=== PATIENT | female | born 1960 | race Caucasian/White ===

== ENCOUNTER 2019-07-02 09:39 | Outpatient (CLI) | payer OTHER, SELFPAY ==
--- NOTE | 2019-07-02 09:48 | EST_ITS ---
Patient Info Name: Shraddha Braxton Age: 59 years : 1960 Gender: Female Ht: 63 in Wt: 125 lbs BSA: 1.59 m2 Exam Date: 07/02/2019 11:02 AM Exam Location: [facility] Stress Patient Status: Outpatient Admit Date: 07/02/2019 Staff Ordering Physician: Marciano Garcia DO Attending Provider: Marciano Garcia DO Exercise Technologist: Danae Dela Cruz RDCS Exercise Physician: Marciano Garcia DO Exam Type: CA stress test treadmill Study Info Indications R07.89 - Other chest pain A treadmill exercise stress test was performed. Summary 1. 1. Negative Dmitry exercise stress test for ischemic ST changes by ECG criteria. 2. 2. Good functional capacity, achieving 9 METs of workload. 3. 3. Appropriate HR response with exercise. 4. 4. Appropriate HR recovery at 1 minute post exercise. 5. 5. No imaging with stress testing. 6. 6. Patient informed of the above results. Protocol: Dmitry Stress ECG Details Stage: REST Duration (min): 0 min : 42 sec Speed (mph): 0.0 Grade (%): 0 HR (bpm): 60 SBP (mmHg): 133 DBP (mmHg): 84 METS: --- Stage: REST Duration (min): 3 min : 46 sec Speed (mph): 0.0 Grade (%): 0 HR (bpm): 63 SBP (mmHg): 133 DBP (mmHg): 84 METS: --- Stage: STAGE 1 Duration (min): 1 min : 0 sec Speed (mph): 1.7 Grade (%): 10 HR (bpm): 95 SBP (mmHg): 133 DBP (mmHg): 84 METS: --- Stage: STAGE 1 Duration (min): 2 min : 0 sec Speed (mph): 1.7 Grade (%): 10 HR (bpm): 105 SBP (mmHg): 133 DBP (mmHg): 84 METS: --- Stage: STAGE 1 Duration (min): 3 min : 0 sec Speed (mph): 1.7 Grade (%): 10 HR (bpm): 107 SBP (mmHg): 141 DBP (mmHg): 73 METS: --- Stage: STAGE 2 Duration (min): 1 min : 0 sec Speed (mph): 2.5 Grade (%): 12 HR (bpm): 113 SBP (mmHg): 141 DBP (mmHg): 73 METS: --- Stage: STAGE 2 Duration (min): 2 min : 0 sec Speed (mph): 2.5 Grade (%): 12 HR (bpm): 118 SBP (mmHg): 146 DBP (mmHg): 76 METS: --- Stage: STAGE 2 Duration (min): 3 min : 0 sec Speed (mph): 2.5 Grade (%): 12 HR (bpm): 124 SBP (mmHg): 146 DBP (mmHg): 76 METS: --- Stage: STAGE 3 Duration (min): 1 min : 0 sec Speed (mph): 3.4 Grade (%): 14 HR (bpm): 136 SBP (mmHg): 159 DBP (mmHg): 79 METS: --- Stage: STAGE 3 Duration (min): 1 min : 28 sec Speed (mph): 3.4 Grade (%): 14 HR (bpm): 138 SBP (mmHg): 159 DBP (mmHg): 79 METS: --- Stage: RECOVERY Duration (min): 0 min : 31 sec Speed (mph): 0.0 Grade (%): 0 HR (bpm): 136 SBP (mmHg): 159 DBP (mmHg): 79 METS: --- Stage: RECOVERY Duration (min): 1 min : 31 sec Speed (mph): 0.0 Grade (%): 0 HR (bpm): 104 SBP (mmHg): 178 DBP (mmHg): 82 METS: --- Stage: RECOVERY Duration (min): 2 min : 31 sec Speed (mph): 0.0
== END 2019-07-02 09:40 | disposition home or self-care (01) ==
PROVIDERS: PCP Internal Medicine; Visit Provider Internal Medicine Cardiovascular Disease
DX: R07.9 Chest pain, unspecified (principal)
CPT/HCPCS: 93017

== ENCOUNTER 2020-08-06 11:13 | Outpatient (CLI) | payer OTHER, SELFPAY ==
--- NOTE | ~2020-08-06 | XR_ITS ---
EXAMINATION: XR shoulder LT min 2V DATE: 08/06/2020 11:32 INDICATION: Left shoulder pain. TECHNIQUE: 4 views of left shoulder were obtained. COMPARISON: None. FINDINGS: Bone alignment is normal. No fracture. There is moderate osteoarthritis of glenohumeral kristin nt and severe osteoarthritis of acromioclavicular joint. IMPRESSION: 1. Polyarticular osteoarthritis. Reviewed, dictated and finalized at location A. FARMER
== END 2020-08-06 11:14 | disposition home or self-care (01) ==
PROVIDERS: PCP Internal Medicine; Visit Provider Internal Medicine
DX: M19.012 Primary osteoarthritis, left shoulder (principal)
CPT/HCPCS: 73030

== ENCOUNTER 2023-10-20 22:28 | Emergency (ER) | payer OTHER, SELFPAY ==
[2023-10-20] VITALS (9 sets, daily range): BP systolic 87–145; BP diastolic 59–94; PULSE 52–89; RESP 11–18; TEMP 36.6; O2SAT 96–100
--- NOTE | ~2023-10-20 | CT_ITS ---
EXAMINATION: CT brain wo con DATE: 10/20/2023 22:48 INDICATION: Found down unresponsive TECHNIQUE: Computed tomography (CT) of the head was performed without intravenous contrast. Sagittal and coronal reconstructions were performed. The mA was adjusted according to patient size. Iterative reconstruction technique was employed. The dose-length product was 1210.67 mGy-cm. COMPARISON: head CT dated 12/27/09 and brain MR dated 04/05/2016 FINDINGS: No fracture. No acute intracranial hemorrhage, acute infarction or abnormal extra axial fluid collect ion. Ventricles are normal and symmetric. No mass/mass effect. The orbits, paranasal sinuses and mast oid air cells are normal. IMPRESSION: 1. Normal for age head CT. No fracture or acute intracranial process. Reviewed, dictated and finalized at location A.
--- NOTE | ~2023-10-20 | CT_ITS ---
EXAMINATION: CT cervical spine wo con DATE: 10/20/2023 22:49 INDICATION: Found down unresponsive TECHNIQUE: Computed tomography (CT) of the cervical spine was performed without intravenous contrast. Automated exposure control and iterative reconstruction technique were employed. The dose-length pro duct was 143.39 mGy-cm. COMPARISON: None FINDINGS: Alignment is normal. Vertebral body heights are normal. No fracture. Moderate osteoarthritis at the a tlantoaxial articulation. Mild disc height loss at C5-C6. Disc bulges resulting in mild central canal stenosis at C3-C4 through C6-C7. Multilevel uncovertebral osteoarthritis, moderate severity on the l eft at C3-C4 on the right at C4-C5 and C6-C7, bilaterally at C5-C6 and mild at the remaining cervical levels. Severe facet osteoarthritis on the left at C4-C5 through C6-C7 and on the left at C7-T1. Mil d to moderate facet osteoarthritis the remaining cervical levels. Together this contributes to mild n eural foraminal stenosis on the left at C3-C4 through C6-C7 and on the right at C2-C3 through C7-T1 r elatively sparing C6-C7. There is additional severe multilevel facet osteoarthritis the visualized up per thoracic spine. Mild emphysema in the visualized upper lungs. Cervical soft tissues are unremarka ble. IMPRESSION: 1. Mild cervical spondylosis with multilevel mild to moderate uncovertebral and moderate to severe fa cet osteoarthritis. No acute osseous abnormality. 2. Mild emphysema. Reviewed, dictated and finalized at location A. IMPRESSION: 1. Mild cervical spondylosis with multilevel mild to moderate uncovertebral and moderate to severe facet osteoarthritis. No acute osseous abnormality. 2. Mild emphysema.
[2023-10-20 22:49] LABS: Glucose Point of Care 104 mg/dl (65-105)
--- NOTE | 2023-10-20 22:56 | ECG_ITS ---
SEE SCANNED COPY FOR CONFIRMED REPORT MTDD
--- NOTE | 2023-10-20 22:57 | ED.AMS ---
HPI - Altered Mental Status General Chief Complaint: Altered Mental Status <Jeri Chin MD - Last Filed: 10/21/23 07:05> Stated Complaint: unresponsive <Jeri Chin MD - Last Filed: 10/21/23 07:05> Time Seen by Provider: 10/20/23 22:44 <Jeri Chin MD - Last Filed: 10/21/23 07:05> History of Present Illness HPI narrative: Patient reportedly found on the ground unresponsive, EMS did notice that she had pinpoint pupils and gave her a dose of IV Narcan after which her end-tidal dramatically increased and she was breathing much more regularly. other history difficult to obtain from the patient due to her confusion <Jeri Chin MD - Last Filed: 10/21/23 07:05> Related Data Home Medications: Home Medications Medication Instructions Recorded Confirmed alprazolam 1 mg tablet 1 mg PO TID 07/09/20 07/09/20 cetirizine 10 mg tablet 10 mg PO DAILY 07/09/20 07/09/20 dolutegravir 50 mg tablet 50 mg PO DAILY 07/09/20 07/09/20 emtricitabine 200 mg-tenofovir 1 tablet PO DAILY 07/09/20 07/09/20 disoproxil fumarate 300 mg tablet quetiapine 50 mg tablet 100 mg PO .HS 07/09/20 07/09/20 <Jeri Chin MD - Last Filed: 10/21/23 07:05> Allergies/Adverse Reactions: Allergies Allergy/AdvReac Type Severity Reaction Status Date / Time latex Allergy Unknown unknown Verified 07/09/20 15:07 ANTIDEPRESSANTS Allergy Intermediate Dyspnea / Uncoded 07/09/20 15:07 SOB PSYCHOTROPIC MEDICATIONS Allergy Intermediate Dyspnea / Uncoded 07/09/20 15:07 SOB <Jeri Chin MD - Last Filed: 10/21/23 07:05> Review of Systems Review of Systems: ROS unobtainable: Yes unobtainable due to mental status <Jeri Chin MD - Last Filed: 10/21/23 07:05> PMFSH Family History Family History: Family History (Updated 01/23/14 @ 07:13 by DOCTOR UNKNOWN) Father Family history of type 2 diabetes mellitus Family history of heart disease in male family member before age 55 Mother Family history of type 2 diabetes mellitus Cerebrovascular accident <Jeri Chin MD - Last Filed: 10/21/23 07:05> Social History Social History: Social History Smoking status: Heavy tobacco smoker Second hand tobacco smoke exposure: Yes Alcohol intake: never <Jeri Chin MD - Last Filed: 10/21/23 07:05> Exam Narrative: EXAMINATION OF ORGAN SYSTEMS/BODY AREAS: Constitutional: Vital signs per nursing GENERAL: Sleepy HEAD: Normal with no signs of head trauma. EYES: pinpoint pupils ENT: dry mucous membranes LUNGS: Nonlabored breathing. HEART: [Regular rate and rhythm] ABD: [Soft], [nontender to palpation] EXT: Normal range of motion without any obvious deformity SKIN: [No rashes or lesions.] NEURO: [Sleepy. No gross focal sensory or strength deficits.] <Jeri Chin MD - Last Filed: 10/21/23 07:05> Course Vital Signs Vital signs: Vital Signs Temperature 97.8 F 10/20/23 22:27 Pulse Rate 84 10/20/23 22:27 Respiratory Rate 18 10/20/23 22:27 Blood Pressure 123/72 10/20/23 22:27 Pulse Oximetry 100 10/20/23 22:27 Oxygen Delivery Room Air 10/20/23 22:27 Temperature 97.8 F 10/20/23 22:27 Pulse Rate 46 L 10/21/23 07:10 Respiratory Rate 14 10/21/23 07:10 Blood Pressure 115/66 10/21/23 07:10 Pulse Oximetry 100 10/21/23 07:10 Oxygen Delivery Room Air 10/20/23 23:30 <Jeri Chin MD - Last Filed: 10/21/23 07:05> Vital Signs Temperature 97.8 F 10/20/23 22:27 Pulse Rate 84 10/20/23 22:27 Respiratory Rate 18 10/20/23 22:27 Blood Pressure 123/72 10/20/23 22:27 Pulse Oximetry 100 10/20/23 22:27 Oxygen Delivery Room Air 10/20/23 22:27 Temperature 97.8 F 10/20/23 22:27 Pulse Rate 46 L 10/21/23 07:10 Respiratory Rate 14 10/21/23 07:10 Blood Pressure 115/66 10/21/23 07:10 Pulse Oximetry 100 10/21/23 07:10 Oxygen Delivery Room Air 10/20/23 23:30 <Millicent Corley MD - Last Filed: 10/21/23 07:51> M
[2023-10-20 23:12] LABS: Basophils Percent Auto 0.4 % (0.2-1.2); Eosinophils Absolute Auto 0.1 K/mm3 (0-0.3); Eosinophils Percent Auto 1.3 % (0-4.4); Hematocrit 37.7 % (37.0-47.0); Hemoglobin 12.3 g/dL (12.0-15.0); Immature Granulocyte Absolute 0.01 K/mm3 (0.00-0.031); Immature Granulocyte Percent A 0.2 % (0-0.5); Immature Platelet Fraction Pct 21.9 % (0.9-11.2); Lymphocytes Absolute Auto 1.33 K/mm3 (0.9-3.2); Lymphocytes Percent Auto 28.5 % (18.3-44.2); Mean Corpuscular HGB Conc 32.6 g/dl (32-36); Mean Corpuscular Hemoglobin 30.9 pg (26-34); Mean Corpuscular Volume 94.7 fl (80-100); Monocytes Absolute Auto 0.4 K/mm3 (0.1-0.6); Monocytes Percent Auto 7.5 % (2.6-8.5); Neutrophils Absolute Auto 2.9 K/mm3 (1.3-6.7); Neutrophils Percent Auto 62.1 % (45.5-73.1); Platelet Count Result 95 k/mm3 (150-375); Red Blood Count 3.98 M/mm3 (4.2-5.4); Red Cell Distribution Width 13.2 % (11.5-14.5); White Blood Count 4.7 K/mm3 (4.5-10.0)
[2023-10-20 23:20] LABS: Alanine Aminotransferase 20 U/L (6-35); Albumin Level 4.1 g/dL (3.5-5.1); Alkaline Phosphatase 81 U/L (38-126); Anion Gap 4 mmol/L (4-12); Aspartate Amino Transferase 33 U/L (14-36); Bilirubin,Total 0.6 mg/dL (0.2-1.3); Blood Urea Nitrogen 14 mg/dL (7-17); Carbon Dioxide 27 mmol/L (22-30); Chloride 107 mmol/L (98-107); Creatine Kinase 169 U/L (30-135); Estimated CRCL calculation 41 ml/min; Estimated Glomerular Filt Rate 56; Ethanol < 10 mg/dL (<10); Glucose 96 mg/dL (65-110); Potassium 3.6 mmol/L (3.4-5.0); Sodium 138 mmol/L (137-145)
[2023-10-21] VITALS (14 sets, daily range): BP systolic 87–133; BP diastolic 61–95; PULSE 37–82; RESP 12–18; O2SAT 96–100
[2023-10-21 01:11] LABS: Appearance Urine Clear (Clear); Bilirubin Urine Negative (Negative); Blood Urine Negative (Negative); Color Urine Yellow (Yellow); Glucose Urine UA Negative (Negative); Ketones Urine Negative (Negative); Leukocyte Esterase Ur Negative LEU/UL (Negative); Nitrate Urine Negative (Negative); Protein Urine Negative (Negative); Specific Grav Ur 1.015 (1.001-1.035); Urobilinogen Urine 0.2 mg/dL (<2.0); pH Urine 5.5 (5.0-9.0)
[2023-10-21 01:28] LABS: Barbiturate Screen Urine Negative (Negative); Benzodiazepines Screen Urine Positive (Negative)
[2023-10-21 01:29] LABS: Cannabinoid Screen Urine Positive (Negative); Cocaine Screen Urine Negative (Negative); Methadone Screen Urine Negative (Negative); Opiate Screen Urine Negative (Negative); Phencyclidine Screen Urine Negative (Negative)
[2023-10-21 01:50] LABS: Amphetamine Screen Urine Positive (Negative)
[2023-10-21 01:51] LABS: Add Urine Microscopic? NO
--- NOTE | 2023-10-21 08:05 | PC.NURSE ---
Attempting to D/C patient at this time. Pt states her son is crazy and is going to torture me This RN offer to call the police for her, or call a homeless/ domestic senior living for her. She denies and states my son is on probation and he will go to skilled nursing if i call the police so i dont want to do that Pt states I will get an order of protection on monday This RN asks what her plan is for the weekend, she states ill just go home, im sure my son will come over and who know what he will do Again I offer to get resources for patient, she denies. Pt states she will call a friend to come and pick her up. Left pt in room to attempt to call friend
--- NOTE | 2023-10-21 08:30 | PC.NURSE ---
Pt daughter called and was very upset that her mother was being D/C. she states why are you letting someone leave that tried to kill herself I explained to her that pt is A&Ox4 at this time and is denying suicidal ideation. daughter continues to yell and curse and threaten to jeffry me, the doctor and hospital if she leaves.
--- NOTE | 2023-10-21 09:08 | PC.NURSE ---
Pt getting dressed at this time and again talking about her son and how he is unmedicated schizophrenic and is nuts . Spoke with pt about her D/C instructions and medication that was prescribed. Pt very upset that she was prescribed narcan. she states Im not a heroin addict, im a meth addict. I do uppers, not downers I explained that she was given narcan prior to her coming to the hospital. This RN explained that she was found unresponsive and given narcan and became responsive. She argued that she took xanex and that was why she was unresponsive . I explained that narcan does not work for benzos. Pt continued to argue. Pt alert and oriented x 4 and denies SI.
== END 2023-10-21 09:15 | disposition home or self-care (01) ==
PROVIDERS: Emergency Medicine; Emergency Provider Emergency Medicine
DX: R41.82 Altered mental status, unspecified (principal); F17.200 Nicotine dependence, unspecified, uncomplicated
CPT/HCPCS: 36415; 70450; 72125; 80053; 80307; 81003; 82550; 82948; 85025; 85055; 93005; 99284